=== PATIENT | female | born 1970 | race Caucasian/White ===

== ENCOUNTER 2017-02-16 15:54 | Observation (INO) | payer SELFPAY ==
--- NOTE | 2017-02-16 16:39 | ER Document Report ---
ED General - General Stated Complaint: SHORTNESS OF BREATH Time Seen by Provider: 02/16/17 16:22 Mode of Arrival: Ambulatory Information source: Patient Notes: This is a 46-year-old female with a history of West Nile encephalitis, atrial fibrillation with RVR, hypothyroidism, chronic PVCs who presents to the emergency room with shortness of breath and chest pain. Patient states she was usual state of health until about noon when the shortness of breath started. She denies any recent fevers, chills, nausea vomiting or diarrhea. TRAVEL OUTSIDE OF THE [place] IN LAST 30 DAYS: No - HPI Onset: Just prior to arrival Onset/Duration: Gradual Quality of pain: Dull Severity: Moderate Pain Level: 2 Associated symptoms: Chest pain, Shortness of breath Exacerbated by: Denies Relieved by: Denies Similar symptoms previously: Yes Recently seen / treated by doctor: Yes - Related Data Allergies/Adverse Reactions: codeine [Codeine] Allergy (Verified 10/17/14 03:42) metoprolol [From Lopressor] Allergy (Verified 02/16/17 16:41) carvedilol [From Coreg] Adverse Reaction (Verified 02/16/17 16:41) Past Medical History - General Information source: Patient - Social History Smoking Status: Never Smoker Cigarette use (# per day): No Chew tobacco use (# tins/day): No Frequency of alcohol use: None Drug Abuse: None Lives with: Family Family History: DM Patient has suicidal ideation: No Patient has homicidal ideation: No - Past Medical History Cardiac Medical History: Reports: Hx Hypertension Pulmonary Medical History: Reports: Hx Tuberculosis - hypo Past Surgical History: Reports: Hx Cholecystectomy, Hx Gynecologic Surgery - uterine ablation, Hx Tonsillectomy, Hx Tubal Ligation - x2 - Immunizations Immunizations up to date: No Review of Systems - Review of Systems Constitutional: denies: Chills, Fever EENT: No symptoms reported Cardiovascular: See HPI Respiratory: See HPI Gastrointestinal: No symptoms reported Genitourinary: No symptoms reported Female Genitourinary: No symptoms reported Musculoskeletal: No symptoms reported Skin: No symptoms reported Hematologic/Lymphatic: No symptoms reported Neurological/Psychological: No symptoms reported Physical Exam - Vital signs Vitals: Pulse Ox 99 02/16/17 16:10 Notes: Physical exam: GENERAL: 46-year-old female, alert and oriented 3, no acute distress HEAD: Atraumatic, normocephalic. EYES: Pupils equal round and reactive to light, extraocular movements intact, sclera anicteric, conjunctiva are normal. ENT: TMs normal, nares patent, oropharynx clear without exudates. Moist mucous membranes. NECK: Normal range of motion, supple without obvious mass or JVD. LUNGS: Breath sounds clear to auscultation bilaterally and equal. No wheezes rales or rhonchi. HEART: Regular rate and rhythm without murmurs, rubs or gallops. ABDOMEN: Soft, normoactive bowel sounds. No tenderness to palpation. No guarding, no rebound. No masses appreciated. EXTREMITIES: Normal range of motion, no pitting or edema. No clubbing or cyanosis. NEUROLOGICAL: Cranial nerves II through XII grossly intact. Normal speech, moving all extremities. PSYCH: Normal mood, normal affect. SKIN: Warm, Dry, normal turgor, no rashes or lesions noted. Course - Vital Signs Vital signs: Temp Pulse Resp BP Pulse Ox 17 156/87 H 98 02/16/17 16:17 02/16/17 16:17 02/16/17 16:38 - Laboratory Result Diagrams: 02/16/17 16:20 02/16/17 16:20 Laboratory results interpreted by me: 02/16/17 02/16/17 16:20 16:20 RDW 14.1 H Creatinine 1.27 H Est GFR ( Amer) 55 L Est GFR (Non-Af Amer) 45 L - Diagnostic Test Radiology reviewed: Image reviewed, Reports reviewed - CTA of the chest shows no pulmonary emboli. Discharge - Discharge Clinical Impression: Chest pain Qualifiers: Chest pain type: unspecified Qualified Code(s): R07.9 - Chest pain, unspecified Condition: Stable Disposition: ADMITTED OBSERVATION Admitting Provider: Hospitalist - Dr Driscoll Unit Admitted: Telemetry
[2017-02-16] MEDS ORDERED: ONDANSETRON HCL INJ/PF 4 MG/2 ML SDV IV ONE (16:40)
[2017-02-16] MEDS ORDERED: MORPHINE SULFATE 10 MG/ML INJ IV ONE ×2 (16:40→18:17)
[2017-02-16 17:16] LABS: ABSOLUTE EOSINOPHILS # (AUTO) 0.1 10^3/uL (0.0-0.6); ABSOLUTE LYMPHOCYTES (AUTO) 2.5 10^3/uL (0.5-4.7); ABSOLUTE MONOCYTES (AUTO) 0.6 10^3/uL (0.1-1.4); ABSOLUTE NEUT (AUTO) 5.1 10^3/uL (1.7-8.2); BASOPHILS % (AUTO) 0.4 % (0-2); EOSINOPHILS % (AUTO) 1.3 % (0-6); HEMATOCRIT 42.8 % (36.0-47.0); HEMOGLOBIN 14.6 g/dL (12.0-15.5); LYMPHOCYTES % (AUTO) 29.5 % (13-45); MEAN CORPUSCULAR HEMOGLOBIN 32.5 pg (27.0-33.4); MEAN CORPUSCULAR VOLUME 96 fl (80-97); MONOCYTES % (AUTO) 7.3 % (3-13); RED BLOOD COUNT 4.49 10^6/uL (3.72-5.28); RED CELL DISTRIBUTION WIDTH 14.1 % (11.5-14.0); SEGMENTED NEUTROPHILS % (AUTO) 61.5 % (42-78); WHITE BLOOD COUNT 8.3 10^3/uL (4.0-10.5)
--- NOTE | 2017-02-16 17:22 | RADIOLOGY REPORT (SQ) ---
EXAM DESCRIPTION: CHEST SINGLE VIEW COMPLETED DATE/TIME: 02/16/2017 4:57 pm REASON FOR STUDY: sob COMPARISON: 10/20/2014 EXAM PARAMETERS: NUMBER OF VIEWS: One view. TECHNIQUE: Single frontal radiographic view of the chest acquired. RADIATION DOSE: NA LIMITATIONS: None. FINDINGS: LUNGS AND PLEURA: No opacities, masses or pneumothorax. No pleural effusion. MEDIASTINUM AND HILAR STRUCTURES: No masses. Contour normal. HEART AND VASCULAR STRUCTURES: Heart normal in size. Normal vasculature. BONES: No acute findings. HARDWARE: None in the chest. OTHER: No other significant finding. IMPRESSION: NO ACUTE RADIOGRAPHIC FINDING IN THE CHEST. TECHNICAL DOCUMENTATION: JOB ID: [id number]
[2017-02-16 17:24] LABS: ALANINE AMINOTRANSFERASE 29 U/L (9-52); ALBUMIN 4.7 g/dL (3.5-5.0); ALKALINE PHOSPHATASE 102 U/L (38-126); ANION GAP 13 (5-19); ASPARTATE AMINO TRANSFERASE 20 U/L (14-36); BILIRUBIN,DIRECT 0.4 mg/dL (0.0-0.4); BILIRUBIN,TOTAL 0.5 mg/dL (0.2-1.3); BLOOD UREA NITROGEN 18 mg/dL (7-20); CALCIUM 10.2 mg/dL (8.4-10.2); CARBON DIOXIDE 23 mmol/L (22-30); CHLORIDE 105 mmol/L (98-107); CREATINE KINASE 52 U/L (30-135); CREATININE RESULT 1.27 mg/dL (0.52-1.25); GLUCOSE 104 mg/dL (75-110); POTASSIUM 4.4 mmol/L (3.6-5.0); SODIUM 141.1 mmol/L (137-145)
[2017-02-16 17:41] LABS: FREE T3 3.99 pg/mL (2.77-5.27)
[2017-02-16 17:43] LABS: CREATINE KINASE MB < 0.22 ng/mL (<4.55); TROPONIN I < 0.012 ng/mL
[2017-02-16 17:55] LABS: THYROID STIMULATING HORMONE 1.65 uIU/mL (0.47-4.68)
[2017-02-16] MEDS ORDERED: NITROGLYCERIN 0.4 MG/TAB 25 TAB/BOTTLE SL PRN (18:09)
[2017-02-16] MEDS ORDERED: NORMAL SALINE 1000 ML 1,000 ML IV PRN (18:23)
[2017-02-16] MEDS ORDERED: MORPHINE SULFATE 10 MG/ML INJ ONE (18:23)
--- NOTE | 2017-02-16 19:02 | RADIOLOGY REPORT (SQ) ---
EXAM DESCRIPTION: CTA CHEST COMPLETED DATE/TIME: 02/16/2017 6:47 pm REASON FOR STUDY: sob COMPARISON: Chest x-ray done earlier the same day. TECHNIQUE: CT scan of the chest performed using helical scanning technique with dynamic intravenous contrast injection. Images reviewed with lung, soft tissue and bone windows. Reconstructed coronal and sagittal MPR images reviewed. Additional 3 dimensional post-processing performed to develop Maximal Intensity Projection images (IA P). All images stored on PACS. All CT scanners at this facility use dose modulation, iterative reconstruction, and/or weight based d osing when appropriate to reduce radiation dose to as low as reasonably achievable (ALARA). [facility]: Dose Right [facility]: CareDose [facility]: Dose Right [facility]: Teradose 4D [facility]: [facility] CONTRAST TYPE AND DOSE: contrast/concentration: Isovue 370.00 mg/ml; Total Contrast Delivered: 68.0 ml; Total Saline Delivered: 109.0 ml Contrast bolus optimized for the pulmonary arteries. Not diagnostic for the aorta. RENAL FUNCTION: BUN 18, creatinine 1.27 RADIATION DOSE: Up-to-date CT equipment and radiation dose reduction techniques were employed. CTDIv ol: 16.3 - 23.2 mGy. DLP: 574 mGy-cm. . LIMITATIONS: None. FINDINGS: LUNGS AND PLEURA: No masses, infiltrates, pneumothorax. No pleural effusions, calcificati ons. AORTA AND GREAT VESSELS: No aneurysm. Contrast bolus not optimized for the aorta. HEART: No pericardial effusion. No significant coronary artery calcifications. PULMONARY ARTERIES: No emboli visualized in the main pulmonary arteries or the segmental branches. HILAR AND MEDIASTINAL STRUCTURES: No identified masses or abnormal nodes. HARDWARE: None in the chest. UPPER ABDOMEN: No significant findings. Limited exam. THYROID AND OTHER SOFT TISSUES: No masses. No adenopathy. BONES: No acute or significant finding. 3D MIPS: Confirm above findings. OTHER: No other significant finding. IMPRESSION: NORMAL CTA OF THE CHEST. NO PULMONARY EMBOLI. COMMENT: Quality ID # [id number]: Final reports with documentation of one or more dose reduction techniques (e.g., Automated exposure control, adjustment of the mA and/or kV according to patient size, use of iterative reconstruction technique) TECHNICAL DOCUMENTATION: JOB ID: [id number] [employer]- All Rights Reserved
--- NOTE | 2017-02-16 19:45 | EKG REPORT ---
SEVERITY:- NORMAL ECG - SINUS RHYTHM : Confirmed by: Ponce Rinaldi MD 16-Feb-2017 19:45:11
--- NOTE | 2017-02-16 19:45 | EKG REPORT ---
SEVERITY:- NORMAL ECG - SINUS RHYTHM : Confirmed by: Ponce Rinaldi MD 16-Feb-2017 19:45:19
[2017-02-16] MEDS ORDERED: NIFEDIPINE 30 MG TAB.ER.24 PO ONE (20:00)
[2017-02-16] MEDS ORDERED: BUTALB/ACETAMINOPHEN/CAFFEINE 1 TAB EACH PO PRN (20:16)
[2017-02-16] MEDS ORDERED: TIZANIDINE HCL 4 MG TABLET PO PRN (20:16)
[2017-02-16] MEDS ORDERED: TRAMADOL HCL 50 MG TABLET PO PRN (20:16)
[2017-02-16] MEDS ORDERED: ONDANSETRON HCL INJ/PF 4 MG/2 ML SDV IV PRN (20:23)
[2017-02-16] MEDS ORDERED: MORPHINE SULFATE 10 MG/ML INJ IV PRN (20:24)
--- NOTE | 2017-02-16 20:41 | PDOC H&P ---
History of Present Illness Admission Date/PCP: 02/16/17 18:10 [facility] Patient complains of: Shortness of breath with activity and chest discomfort History of Present Illness: GABE FARRELL is a 46 year old female with a past history of encephalopathy, A. fib, PVCs, hypothyroidism presenting with a 1 day history of progressive shortness of breath which started around lunchtime. Patient states that it was intermittent but the more activity she would do the more short of breath she would feel. Patient states she was standing and cutting jensen when she became very short of breath and diaphoretic. She also became nauseated at which point she called 911. Patient states she has had increased chest pressure located in the center of her chest which radiated to the right side and into her back. Patient states she has never had anything like that before. Patient states this is very concerning as she is never had any respiratory problems in the past. Patient has had a stress test about 6-7 years ago when she started having arrhythmias. Patient states it was a exercise stress test and it was normal. Patient presented to the ED with complaints of shortness of breath and chest discomfort. Hospitalist was called to bring patient in for observation to rule out possible cardiac cause for her symptoms. Past Medical History Cardiac Medical History: Reports: Hypertension Pulmonary Medical History: Reports: Tuberculosis - hypo Neurological Medical History: Reports: Migraine Past Surgical History Past Surgical History: Reports: Cholecystectomy, Tonsillectomy, Tubal Ligation - x2 Social History Lives with: Family Smoking Status: Never Smoker - Advance Directive Resuscitation Status: Full Code Family History Family History: DM Parental Family History Reviewed: Yes Children Family History Reviewed: Yes Sibling(s) Family History Reviewed.: Yes Medication/Allergy Home Medications: Levothyroxine Sodium [Synthroid 0.025 mg Tablet] 0.025 mg PO DAILY 10/18/14 Lisinopril [Zestril] 10 mg PO DAILY 10/18/14 Nebivolol HCl [Bystolic 10 mg Tablet] 10 mg PO DAILY 10/18/14 Aspirin [Ecotrin 81 mg EC Tablet] 81 mg PO DAILY 02/16/17 Butalb/Acetaminophen/Caffeine [Fioricet (50-325-40 mg) Tablet] 1 tab PO Q4HP PRN 02/16/17 Diphenhydramine HCl [Benadryl] 25 mg PO QHS 02/16/17 Tizanidine HCl [Zanaflex 4 Mg Tablet] 4 mg PO QHS PRN 02/16/17 Tramadol HCl [Ultram] 50 mg PO PRN PRN 02/16/17 Allergies/Adverse Reactions: codeine [Codeine] Allergy (Verified 10/17/14 03:42) metoprolol [From Lopressor] Allergy (Verified 02/16/17 16:41) carvedilol [From Coreg] Adverse Reaction (Verified 02/16/17 16:41) Review of Systems Constitutional: PRESENT: headache(s), weakness Eyes: ABSENT: visual disturbances Ears: ABSENT: hearing changes Nose, Mouth, and Throat: PRESENT: headache(s) Cardiovascular: PRESENT: chest pain, dyspnea on exertion, palpitations Respiratory: PRESENT: dyspnea Gastrointestinal: PRESENT: nausea Genitourinary: ABSENT: difficulty urinating Musculoskeletal: PRESENT: back pain Integumentary: PRESENT: diaphoresis Neurological: PRESENT: weakness Psychiatric: PRESENT: anxiety Physical Exam Vital Signs: Temp Pulse Resp BP Pulse Ox 25 H 150/96 H 100 02/16/17 19:01 02/16/17 19:01 02/16/17 19:01 General appearance: PRESENT: no acute distress, cooperative, mild distress Head exam: PRESENT: normocephalic Eye exam: PRESENT: EOMI Mouth exam: PRESENT: moist Respiratory exam: PRESENT: clear to auscultation fer, unlabored. ABSENT: retraction, tachypnea Cardiovascular exam: PRESENT: RRR GI/Abdominal exam: PRESENT: normal bowel sounds, soft. ABSENT: tenderness Rectal exam: PRESENT: deferred Extremities exam: PRESENT: full ROM. ABSENT: joint swelling, pedal edema Musculoskeletal exam: PRESENT: normal inspection Neurological exam: PRESENT: alert, awake, oriented to person, oriented to place , oriented to time, oriented to situation, CN II-XII grossly intact Psychiatric exam: PRESENT: anxious Skin exam: PRESENT: intact, warm Results Impressions: Chest X-Ray 02/16/17 16:38 IMPRESSION: NO ACUTE RADIOGRAPHIC FINDING IN THE CHEST. Chest/Abdomen CTA 02/16/17 17:46 IMPRESSION: NORMAL CTA OF THE CHEST. NO PULMONARY EMBOLI. Assessment & Plan - Diagnosis (1) Chest pain Qualifiers: Chest pain type: unspecified Qualified Code(s): R07.9 - Chest pain, unspecified Plan: Presenting with atypical chest pain however she does have a history of type her attention. We will trend her troponins. Patient is on Bystolic. We will continue a baby aspirin. Will order lipid panel in the morning and hemoglobin A1c. (2) Dyspnea on exertion Is this a current diagnosis for this admission?: Yes Plan: This could be an anginal equivalent as it worsens with exertion and improves with rest. As stated above serial troponins are being ordered. Echo was ordered to rule out any valvular disease. Will also order a nuclear stress test to rule out any ischemia. (3) Atrial fibrillation Qualifiers: Atrial fibrillation type: chronic Qualified Code(s): I48.2 - Chronic atrial fibrillation Is this a current diagnosis for this admission?: Yes Plan: Patient in normal sinus rhythm. Will continue her beta elías for now. (4) Renal failure Qualifiers: Renal failure chronicity: acute Plan: Patient is on a ACEI. Will hold ACEI and hydrate overnight. Repeat BMP in the am. (5) Hypothyroidism Qualifiers: Hypothyroidism type: acquired Qualified Code(s): E03.9 - Hypothyroidism, unspecified Is this a current diagnosis for this admission?: Yes Plan: Thyroid studies are normal. Will continue thyroid replacement. - Time Time Spent: 30 to 50 Minutes Medications reviewed and adjusted accordingly: Yes Anticipated discharge: Home Within: within 24 hours
[2017-02-16 21:02] LABS: URINE BARBITURATES SCREEN UNCONFIRMED POSITIVE; URINE METHADONE SCREEN NEGATIVE; URINE OPIATES LOW UNCONFIRMED POSITIVE; URINE PHENCYCLIDINE SCREEN NEGATIVE
[2017-02-16] MEDS ORDERED: DIPHENHYDRAMINE HCL 25 MG CAPSULE PO SCH (22:00)
[2017-02-17 05:36] LABS: ANION GAP 11 (5-19); BLOOD UREA NITROGEN 17 mg/dL (7-20); CARBON DIOXIDE 23 mmol/L (22-30); CHLORIDE 105 mmol/L (98-107); CHOLESTEROL 216.07 mg/dL (0-200); CREATININE RESULT 1.02 mg/dL (0.52-1.25); Direct HDL 46 mg/dL (>40); GLUCOSE 150 mg/dL (75-110); SODIUM 138.6 mmol/L (137-145); TRIGLYCERIDES 250 mg/dL (<150)
[2017-02-17 05:47] LABS: DIRECT LDL 123 mg/dL (<100)
[2017-02-17] MEDS ORDERED: NEBIVOLOL HCL 10 MG TABLET PO SCH (10:00)
[2017-02-17] MEDS ORDERED: ASPIRIN 81 MG TABLET, ENT COATED PO SCH (10:00)
[2017-02-17] MEDS ORDERED: ASPIRIN 81 MG TABLET, CHEWABLE PO SCH (10:00)
[2017-02-17] MEDS ORDERED: LEVOTHYROXINE SODIUM 0.025 MG TABLET PO SCH (10:00)
[2017-02-17] MEDS ORDERED: AMINOPHYLLINE INJ/PF 250 MG/10 ML SDV IV ONE (12:13)
[2017-02-17] MEDS ORDERED: REGADENOSON INJ 0.4 MG/5 ML DISP.SYRIN IV ONE (12:13)
--- NOTE | 2017-02-17 14:23 | DRAGON STRESS TEST REPORT ---
INTRAVENOUS LEXISCAN CARDIOLITE STRESS TEST USING SINGLE PHOTON EMMISION COMPUTERIZED TOMOGRAPHIC. DATE OF PROCEDURE: February 17, 2017 INDICATION : Chest pain and shortness of breath CARDIAC RISK FACTORS: Hypertension RESTING EKG: Sinus rhythm without any baseline ST-T wave changes STRESS EKG: No significant changes noted with LexiScan bolus REASON FOR TERMINATION: Protocol. PROCEDURE REPORT: Baseline heart rate 67 beats per minute with blood pressure of 135/83. Patient had no significant complaints. Heart rate at 2 minutes post bolus 113 with a blood pressure of 123/72. 3 minutes post bolus heart rate 83 with blood pressure of 122/72. No significant EKG changes were noted. Patient had no significant complaints during the procedure or postprocedure. Patient injected with Aminophyllin 75 mg at 3 minutes or later after Lexiscan bolus. CONCLUSIONS: Normal EKG and hemodynamic response to IV LexiScan. NUCLEAR DATA: At rest the patient was given 13.51 millicuries of technetium 99 sestamibi injected intravenously. As per protocol rest gated SPECT images were obtained. Subsequently the patient was given intravenous LexiScan at a dose of 0.4 mg in 5 mL intravenously, followed by flush with normal saline. Subsequently the stress dose of 40.0 millicuries of technetium 99 sestamibi was injected intravenously. As per protocol stress gated images were obtained. NUCLEAR INTERPRETATION: Both raw and processed data were used for interpretation. Visual, qualitative, computer-generated quantitative data was used. There was good myocardial uptake of technetium compound. Motion artifact and soft tissue attenuations were noted. Increased visceral uptake was noted. No definitive areas of transient perfusion defect noted. No definitive areas of fixed perfusion defect or scars noted. EKG gated imaging showed LV EF at 59 %, rest and stress gated EF similar visually. T. I D. ratio was 1.53, visually however it seems significantly less. Lung heart ratio noted to be within normal limits 0.29. No significant extracardiac and abnormal radiotracer activities were noted. RV free wall uptake was noted to be mildly increased. IMPRESSION: Also refer to comments under nuclear interpretation. Also test results needs to be interpreted in the context of pretest probability. 1. There is no definitive scintigraphic evidence of LexiScan induced myocardial ischemia. 2. There is no definitive scintigraphic evidence of myocardial infarction/scar. 3. EKG gated imaging shows left ventricular ejection fraction of approximately 59 %. 4. Transient ischemic dilatation was noted. Clinical significance in the absence of significant perfusion abnormalities is uncertain. Most recent data suggests no significant increased cardiovascular event rate but clinical correlation is requested. Clinical correlation also requested as occasionally worse disease or balanced ischemia could be missed. In approximately 10% of the cases Lexiscan may not cause adequate vasodilatory stress. RECOMMENDATIONS: Aggressive risk factor modification, medical therapy. May consider cardiac CTA for coronary calcification etc. Clinical correlation with echocardiogram derived ejection fraction. Inability to exercise by itself can lead to increased cardiovascular event risks. Consider cardiology consultation and or follow-up if clinically indicated. I AM AVAILABLE FOR CARDIOLOGY CONSULTATION AND FOLLOWUP IF REQUESTED BY PMD Taylor oCtter M.D., [employer] polysomnographic technologist, Board certified in cardiovascular diseases, Nuclear cardiology, Echocardiography Cardiac CT and cardiac MRI Ph. [phone] [facility] MEDICAL CENTERAdele
[2017-02-17 17:07] VITALS: BP 133/87
[2017-02-17] MEDS ORDERED: SIMVASTATIN 10 MG TABLET PO SCH (22:00)
--- NOTE | 2017-02-17 23:43 | PDOC DISCHARGE SUMMARY ---
General - Admit/Disc Date/PCP Admission Date/Primary Care Provider: 02/16/17 18:09 [facility] Discharge Date: 02/17/17 - Discharge Diagnosis (2) Dyspnea on exertion Is this a current diagnosis for this admission?: Yes (3) Atrial fibrillation Is this a current diagnosis for this admission?: Yes (5) Hypothyroidism Is this a current diagnosis for this admission?: Yes - Additional Information Resuscitation Status: Full Code Discharge Diet: Cardiac Discharge Activity: Activity As Tolerated Home Medications: Levothyroxine Sodium [Synthroid 0.025 mg Tablet] 0.025 mg PO DAILY 10/18/14 Lisinopril [Zestril] 10 mg PO DAILY 10/18/14 Nebivolol HCl [Bystolic 10 mg Tablet] 10 mg PO DAILY 10/18/14 Aspirin [Ecotrin 81 mg EC Tablet] 81 mg PO DAILY 02/16/17 Butalb/Acetaminophen/Caffeine [Fioricet (50-325-40 mg) Tablet] 1 tab PO Q4HP PRN 02/16/17 Diphenhydramine HCl [Benadryl] 25 mg PO QHS 02/16/17 Tizanidine HCl [Zanaflex 4 mg Tablet] 4 mg PO QHS PRN 02/16/17 Tramadol HCl [Ultram] 50 mg PO PRN PRN 02/16/17 History of Present Illness History of Present Illness: GABE FARRELL is a 46 year old female with a past history of encephalopathy, A. fib, PVCs, hypothyroidism presenting with a 1 day history of progressive shortness of breath which started around lunchtime. Patient states that it was intermittent but the more activity she would do the more short of breath she would feel. Patient states she was standing and cutting jensen when she became very short of breath and diaphoretic. She also became nauseated at which point she called 911. Patient states she has had increased chest pressure located in the center of her chest which radiated to the right side and into her back. Patient states she has never had anything like that before. Patient states this is very concerning as she is never had any respiratory problems in the past. Patient has had a stress test about 6-7 years ago when she started having arrhythmias. Patient states it was a exercise stress test and it was normal. Patient presented to the ED with complaints of shortness of breath and chest discomfort. Hospitalist was called to bring patient in for observation to rule out possible cardiac cause for her symptoms. Hospital Course Hospital Course: Chest pain Presenting with atypical chest pain however she does history of hypertension and now hyperlipidemia. Patient A1c isn 5.6. Stress test and echo were normal. Patient discharge home [facility]. Dyspnea on exertion Improved however this was worked up as and anginal equivalent. As stated above patient cardiac work up was negative. (3) Atrial fibrillation Patient in normal sinus rhythm. Patient was continued on her beta elías. . (4) Renal failure Improved with IV hydration and holding ACEI. (5) Hypothyroidism Thyroid studies are normal. Will continue thyroid replacement. (6) Hyperlipidemia Patient was counseled to hold on diet a low-cholesterol diet. Patient has multiple sensitivities advised her to try fish oil and then discuss with her PCP possibly starting a statin. As this too in addition to her obesity and hypertension puts her at risk for coronary artery disease. Physical Exam Vital Signs: Temp Pulse Resp BP Pulse Ox 98.0 F 73 16 129/77 H 98 02/17/17 15:27 02/17/17 15:27 02/17/17 15:27 02/17/17 15:27 02/17/17 15:27 Intake & Output 02/16/17 02/17/17 02/18/17 06:59 06:59 06:59 Intake Total 450 Balance 450 Weight 88.5 kg General appearance: PRESENT: no acute distress, obese Head exam: PRESENT: normocephalic Eye exam: PRESENT: EOMI Respiratory exam: PRESENT: accessory muscle use, clear to auscultation fer, unlabored Cardiovascular exam: PRESENT: RRR GI/Abdominal exam: PRESENT: normal bowel sounds, soft. ABSENT: tenderness Rectal exam: PRESENT: deferred Extremities exam: ABSENT: pedal edema, tenderness Musculoskeletal exam: PRESENT: full ROM Neurological exam: PRESENT: alert, awake, oriented to person, oriented to place , oriented to time, CN II-XII grossly intact Psychiatric exam: PRESENT: anxious Results Laboratory Results: 02/17/17 05:09 02/17/17 05:09 Sodium 138.6 Potassium 5.0 Chloride 105 Carbon Dioxide 23 Anion Gap 11 BUN 17 Creatinine 1.02 Est GFR ( Amer) > 60 Est GFR (Non-Af Amer) 58 L Glucose 150 H Calcium 9.0 Triglycerides 250 H Cholesterol 216.07 H LDL Cholesterol Direct 123 H VLDL Cholesterol 50.0 H HDL Cholesterol 46 02/16/17 02/17/17 02/17/17 23:15 05:09 11:30 Troponin I < 0.012 < 0.012 < 0.012 Impressions: Chest X-Ray 02/16/17 16:38 IMPRESSION: NO ACUTE RADIOGRAPHIC FINDING IN THE CHEST. Chest/Abdomen CTA 02/16/17 17:46 IMPRESSION: NORMAL CTA OF THE CHEST. NO PULMONARY EMBOLI. Qualifiers PATEINT BEING DISCHARGED WITH ANY OF THE FOLLOWING DIAGNOSIS?: No Plan Time Spent: Less than 30 Minutes
--- NOTE | 2017-02-25 09:53 | XCELERA REPORT ---
[address] [place] [address] Transthoracic Echocardiogram Report Name: GABE FARRELL Age: 46 yrs Gender: Female : 1970 Patient Status: Inpatient Patient Location: [address] [place], [place] [id number] Study Date: 02/17/2017 09:55 AM Height: 64 in Weight: 192 lb BSA: 1.9 m2 Reason For Study: chest pain Ordering Physician: HOMAR MORRELL Performed By: Sapphire Sanabria Interpretation Summary LV segmental disease is not iruled out dfue to no Lnterior wall and basal inferior wall visualisation, but EF is normal and no LV enlargement. AV poorly visualised. not suspected. MV and TV is normal. Poor study. MMode/2D Measurements & Calculations RVDd: 2.5 cm LVIDd: 4.6 cm FS: 39.5 % Ao root diam: 3.1 cm IVSd: 0.94 cm LVIDs: 2.8 cm EDV(Teich): 96.2 ml LVPWd: 0.87 cmESV(Teich): 28.7 ml Ao root area: 7.8 cm2 EF(Teich): 70.1 % LA dimension: 3.4 cm LVOT diam: 2.0 cm LVOT area: 3.3 cm2 Doppler Measurements & Calculations MV E max anastacio: MV P1/2t max anastacio: Ao V2 max: LV V1 max P.9 cm/sec 56.2 cm/sec 122.5 cm/sec 4.0 mmHg MV A max anastacio: MV P1/2t: 81.4 msec Ao max PG: LV V1 max: 65.5 cm/sec MVA(P1/2t): 2.7 cm2 6.0 mmHg 99.8 cm/sec MV E/A: 0.87 MV dec slope: JOHN(V,D): 2.7 cm2 202.3 cm/sec2 PA V2 max: TR max anastacio: 68.9 cm/sec 213.7 cm/sec PA max PG: TR max P.3 mmHg 1.9 mmHg Left Ventricle The left ventricle is normal in size. There is normal left ventricular wall thickness. The left ventricular ejection fraction is normal. The transmitral spectral Doppler flow pattern is abnormal for age. Spectral Doppler of the mitral valve is reversed, with an E/A wave ratio < 1.0. Regional wall motion abnormalities cannot be excluded due to limited visualization. anterior wall and basal inferior wall not imaged. There is no thrombus. Right Ventricle The right ventricle is normal in size, thickness and function. Atria The right atrium is normal. The left atrial size is normal. The interatrial septum is intact with no evidence for an atrial septal defect. Mitral Valve The mitral valve is normal in structure and function. There is no evidence of mitral valve prolapse. There is no mitral valve stenosis. There is no mitral regurgitation noted. Aortic Valve The aortic valve opens well. The aortic valve is not well visualized secondary to technical limitations. There is no aortic valvular vegetation. There is no aortic valve stenosis. No aortic regurgitation is present. Tricuspid Valve The tricuspid valve is not well visualized secondary to technical limitations. There is a trace or physiologic amount of tricuspid regurgitation. Pulmonic Valve The pulmonic valve is not well visualized. There is no pulmonic valvular regurgitation. Great Vessels The aortic root is normal size. Effusions There is no pericardial effusion. I WMSI = 1.00 % Normal = 100 Segments Size X - Cannot 1 - Normal 2 - 3 - Akinetic4 - 1-2 small Interpret Hypokinetic Dyskinetic 3-5 moderate 5 - 6-14 large Aneurysmal 15-16 diffuse : HOMAR MORRELL > Ponce Rinaldi
== END 2017-02-17 17:15 | disposition home or self-care (01) ==
LOC: ER 15:54 → EH 18:09 → UNDOADMOB 18:10 → 4N 21:15 → EH 21:15
DX: R07.89 Other chest pain (principal); R06.09 Other forms of dyspnea; I48.91 Unspecified atrial fibrillation; E03.9 Hypothyroidism, unspecified; R11.0 Nausea; N19 Unspecified kidney failure; E78.5 Hyperlipidemia, unspecified; I10 Essential (primary) hypertension; E66.9 Obesity, unspecified; Z79.899 Other long term (current) drug therapy; Z79.82 Long term (current) use of aspirin; Z68.34 Body mass index [BMI] 34.0-34.9, adult; Z86.19 Personal history of other infectious and parasitic diseases; Z86.11 Personal history of tuberculosis; Z98.51 Tubal ligation status; Z98.890 Other specified postprocedural states; Z90.49 Acquired absence of other specified parts of digestive tract
CPT/HCPCS: 93005; 96376; 99285; 96374; 96375; 36415 ×2; 84439; 82553; 82550; 83735; 84443; 85025; 80048; 80053; 84484 ×2; 80307; 84481; 83036; 80061; 93306; 93017; 71010; 78452; 71275; 93010; G0378 ×3; A9500; J2785; J3490 ×2; J2270; J2405; J0280; Q9969

== ENCOUNTER → 2017-09-27 | Outpatient (CLI) | payer MEDICARE, MEDICAID ==
--- NOTE | 2017-09-27 16:08 | WOMENS IMAGING REPORT ---
EXAM DESCRIPTION: 3D SCREENING MAMMO BILAT COMPLETED DATE/TIME: 09/27/2017 2:53 pm REASON FOR STUDY: ROUTINE SCREENING;Z12.31 Z12.31 ENCNTR SCREEN MAMMOGRAM FOR MALIGNANT NEOPLASM OF [place] COMPARISON: None. TECHNIQUE: Standard craniocaudal and mediolateral oblique views of each breast recorded using digita l acquisition and breast tomosynthesis. LIMITATIONS: None. FINDINGS: No masses, calcifications or architectural distortion. No areas of suspicion. Read with the assistance of CAD. .[facility] - R2 Cenova Version 1.3 .[facility] Imaging - R2 Cenova Version 1.3 .[facility] - R2 Cenova Version 2.4 .[facility] - R2 Cenova Version 2.4 .[facility] - R2 Knot Cutter Version 9.2 IMPRESSION: NORMAL MAMMOGRAM. BIRADS 1. BREAST DENSITY: b. There are scattered areas of fibroglandular density. BIRAD: 1 NEGATIVE RECOMMENDATION: ROUTINE SCREENING COMMENT: The patient has been notified of the results by letter per SA requirements. Additional no tification policies are in place for contacting patient with suspicious or incomplete findings. Quality ID #[id number]: The [employer] recommends an annual screening mammogram for women aged 40 years or over. This facility utilizes a reminder system to ensure that all patients receive reminder letters, and/or direct phone calls for appointments. This includes reminders for routine scr eening mammograms, diagnostic mammograms, or other Breast Imaging Interventions when appropriate. Th is patient will be placed in the appropriate reminder system. The [employer] (ACR) has developed recommendations for screening MRI of the breast s in certain patient populations, to be used in conjunction with mammography. Breast MRI surveillanc e may be appropriate for women with more than 20% lifetime risk of developing breast cancer as deter mined by genetic testing, significant family history of the disease, or history of mantle radiation f or Hodgkins Disease. ACR Practice Guidelines 2008. DBT Technology DBT is a type of tomographic mammography. With conventional mammography, overlapping breast tissue ma y make lesions difficult to detect, even with good compression. DBT uses an x-ray tube that rotates a round the breast, taking images at different angles. These images are then combined to create thin sl ices of the breast that the radiologist can view as a 3D reconstruction. The [employer] unit can perform full-field digital mammograms (2D imaging); or DBT (3D imaging); or both, in a combination mode that quickly performs both the mammogram and the tomosynthesis scan while the breast is still compressed. PQRS 6045F: Fluoroscopic imaging is not utilized for breast tomosynthesis. TECHNICAL DOCUMENTATION: FINDING NUMBER: (1) ASSESSMENT: (1) JOB ID: [id number] [employer]- All Rights Reserved Reading location - IP/workstation name: [email or web address] [id number]
== END ==
LOC: WI 14:29
PROVIDERS: ATTEND Family Medicine
DX: Z12.31 Encounter for screening mammogram for malignant neoplasm of breast (principal)
CPT/HCPCS: 77063; 77067

== ENCOUNTER 2018-05-17 10:45 | Emergency (ER) | payer MEDICARE, MEDICAID ==
[2018-05-17 10:56] VITALS: BP 143/90
[2018-05-17] MEDS ORDERED: NORMAL SALINE 1000 ML 1,000 ML IV ONE (11:08)
[2018-05-17] MEDS ORDERED: MORPHINE SULFATE 10 MG/ML INJ IV ONE (11:08)
[2018-05-17] MEDS ORDERED: KETOROLAC TROMETHAMINE INJ/PF 30 MG/1 ML SDV IV ONE (11:08)
[2018-05-17] MEDS ORDERED: ONDANSETRON HCL INJ/PF 4 MG/2 ML SDV IV ONE (11:08)
[2018-05-17] MEDS ORDERED: DICYCLOMINE HCL INJ 20 MG/2 ML AMPULE IM ONE (11:09)
--- NOTE | 2018-05-17 11:10 | ER Document Report ---
ED Medical Screen (RME) - General Chief Complaint: Abdominal Pain Stated Complaint: ABDOMINAL PAIN Time Seen by Provider: 05/17/18 11:02 Notes: 47 years old female presents today with left flank pain of sudden onset late this morning while she was sleeping, was radiating towards the umbilicus. Has a extensive history including viral encephalopathy, acute renal failure, gastroparesis. In moderate to severe pain. Tenderness over the left flank. TRAVEL OUTSIDE OF THE [place] IN LAST 30 DAYS: No - Related Data Allergies/Adverse Reactions: codeine [Codeine] Allergy (Verified 05/17/18 10:47) metoprolol [From Lopressor] Allergy (Verified 05/17/18 10:47) carvedilol [From Coreg] Adverse Reaction (Verified 05/17/18 10:47) Past Medical History - Past Medical History Cardiac Medical History: Reports: Hx Hypertension Pulmonary Medical History: Reports: Hx Tuberculosis - hypo Neurological Medical History: Reports: Hx Migraine Past Surgical History: Reports: Hx Cholecystectomy, Hx Gynecologic Surgery - uterine ablation, Hx Tonsillectomy, Hx Tubal Ligation - x2 - Immunizations Immunizations up to date: No Physical Exam - Vital signs Vitals: Temp Pulse Resp BP Pulse Ox 98.2 F 82 20 143/90 H 100 05/17/18 10:52 05/17/18 10:52 05/17/18 10:52 05/17/18 10:52 05/17/18 10:52 Course - Vital Signs Vital signs: Temp Pulse Resp BP Pulse Ox 98.2 F 82 20 143/90 H 100 05/17/18 10:52 05/17/18 10:52 05/17/18 10:52 05/17/18 10:52 05/17/18 10:52 Doctor's Discharge - Discharge Referrals: SUE MULLINS MD [Primary Care Provider] - Follow up as needed
--- NOTE | 2018-05-17 11:44 | RADIOLOGY REPORT (SQ) ---
EXAM DESCRIPTION: KUB/ABDOMEN (SINGLE VIEW) COMPLETED DATE/TIME: 05/17/2018 11:33 am REASON FOR STUDY: Acute abdominal pain COMPARISON: CT abdomen pelvis 10/20/2014 NUMBER OF VIEWS: One view. TECHNIQUE: Supine radiographic image of the abdomen acquired. LIMITATIONS: None. FINDINGS: BOWEL GAS PATTERN: Normal bowel gas pattern. No dilated loops. Moderate stool in the asce nding colon and transverse colon. CALCIFICATIONS: Multiple calcified pelvic phleboliths. SOFT TISSUES: No gross mass or suggestion of organomegaly. HARDWARE: Clips right upper quadrant post cholecystectomy. BONES: Lower lumbar facet arthropathy OTHER: No other significant finding. IMPRESSION: NO RADIOGRAPHIC EVIDENCE FOR ACUTE ABDOMINAL DISEASE. TECHNICAL DOCUMENTATION: JOB ID: [id number] [employer]- All Rights Reserved Reading location - IP/workstation name: [email or web address]
== END 2018-05-17 12:18 | disposition left against medical advice (07) ==
LOC: ER 10:45
DX: R10.9 Unspecified abdominal pain (principal); I10 Essential (primary) hypertension; Z88.5 Allergy status to narcotic agent; Z88.8 Allergy status to other drugs, medicaments and biological substances; Z90.49 Acquired absence of other specified parts of digestive tract; Z98.51 Tubal ligation status; Z53.20 Procedure and treatment not carried out because of patient's decision for unspecified reasons
CPT/HCPCS: 74018; 99281